=== PATIENT | female | born 2000 | race Caucasian/White ===

== ENCOUNTER 2023-02-13 12:14 | Outpatient (CLI) | payer OTHER ==
[~2023-02-13] VITALS: Ht 165.1 cm; Wt 92.0 kg
[2023-02-13 12:32] VITALS: BP 125/79
[2023-02-13] MEDS ORDERED: PRENTAB9 PO (12:37)
[2023-02-13] MEDS ORDERED: TUMS500C PO (12:38)
[2023-02-13] MEDS ORDERED: HOME MED LIST COMPLETE! XX SCH (12:40)
[2023-02-13] MEDS ORDERED: ONDANSETRON 4MG ORAL DISINTEGRATING TAB PO ONE (13:10)
[2023-02-13] MEDS ORDERED: FAMOTIDINE 20 MG TAB PO ONE (13:10)
[2023-02-13] MEDS ORDERED: BICITRA 30ML SOLN UDC PO ONE (13:10)
== END 2023-02-13 13:30 | disposition home or self-care (01) ==
LOC: M LDO 12:14
PROVIDERS: ATTEND Obstetrics & Gynecology
DX: O99.613 Diseases of the digestive system complicating pregnancy, third trimester (principal); Z3A.25 25 weeks gestation of pregnancy; K21.9 Gastro-esophageal reflux disease without esophagitis; O21.2 Late vomiting of pregnancy
CPT/HCPCS: 59025; G0463

== ENCOUNTER → 2023-04-03 | Outpatient (CLI) | payer OTHER ==
[~2023-04-03] MED LIST: PRENTAB9 PO; TUMS500C PO
== END ==
LOC: M RAD 06:36
PROVIDERS: ATTEND Nurse Practitioner Women's Health
DX: Z36.89 Encounter for other specified antenatal screening (principal); Z3A.33 33 weeks gestation of pregnancy

== ENCOUNTER 2023-05-21 21:55 | Outpatient (CLI) | payer OTHER ==
[~2023-05-21] VITALS: Ht 165.1 cm; Wt 100.2 kg
[2023-05-21] MEDS ORDERED: LR 1,000 ML IV ONE (22:05)
[2023-05-21] MEDS ORDERED: ONDANSETRON 4MG 2ML VIAL IV ONE (22:05)
[2023-05-21 22:30] VITALS: BP 136/97
[2023-05-21 22:39] VITALS: BP 133/74
[2023-05-21 23:25] LABS: HEMOGLOBIN 10.8 g/dl (12.0-15.5); MEAN CORPUSCULAR HGB CONC 32.7 g/dl (32.0-36.5); MEAN CORPUSCULAR VOLUME 82.5 fl (80.0-96.0); PLATELET COUNT, AUTOMATED 342 10^3/uL (150-450)
[2023-05-21 23:31] LABS: LIPASE 33 U/L (12-53)
[2023-05-21 23:33] LABS: ALBUMIN 2.4 G/DL (3.2-5.2); ALKALINE PHOSPHATASE 151 U/L (46-116); ALT/SGPT 12 U/L (7.0-40); AST/SGOT 17 U/L (<34); BILIRUBIN,TOTAL 0.4 MG/DL (0.3-1.2); BLOOD UREA NITROGEN 13 MG/DL (9-23); CALCIUM LEVEL 9.2 MG/DL (8.5-10.1); CARBON DIOXIDE LEVEL 24 MMOL/L (20-31); CHLORIDE LEVEL 106 MMOL/L (98-107); CREATININE FOR GFR 0.53 MG/DL (0.55-1.30); GLOMERULAR FILTRATION RATE > 60.0 (>60); GLUCOSE, FASTING 83 MG/DL (60-100); POTASSIUM SERUM 4.4 MMOL/L (3.5-5.1); SODIUM LEVEL 139 MMOL/L (136-145); TOTAL PROTEIN 5.9 G/DL (5.7-8.2)
[2023-05-22 00:19] VITALS: BP 141/83
== END 2023-05-22 00:25 | disposition home or self-care (01) ==
LOC: M LDO 21:55
PROVIDERS: ATTEND Obstetrics & Gynecology
DX: O26.893 Other specified pregnancy related conditions, third trimester (principal); N89.8 Other specified noninflammatory disorders of vagina; O21.2 Late vomiting of pregnancy
CPT/HCPCS: 59025; 80053; 81001; 83690; 85027; 87086; 87635; 96374; G0463; J2405